=== PATIENT | female | born 1955 | race Caucasian/White ===

== ENCOUNTER 2017-12-04 13:32 | Inpatient (IN) | payer BC ==
[~2017-12-04] VITALS: Ht 271.8 cm; Wt 68.9 kg
[2017-12-04] MEDS ORDERED: ASPIRIN 81 MG CHEW TAB PO ONE ×2 (13:45→15:30)
[2017-12-04] MEDS ORDERED: MORPHINE SULFATE 2 MG/ML SYR IV STA (13:46)
[2017-12-04] MEDS ORDERED: ONDANSETRON HCL INJ 2 MG/ML VIAL IV STA (13:46)
[2017-12-04 13:53] LABS: BASOPHILS % 0.5 % (0.0-1.0); EOSINOPHILS % 0.4 % (0.0-6.0); HEMATOCRIT 39.3 % (34.2-44.1); HEMOGLOBIN 13.5 g/dL (12.0-16.0); LYMPHOCYTES # (AUTO) 1.8 (1.0-3.2); LYMPHOCYTES % 22.9 % (18.0-39.1); MEAN CORPUSCULAR HEMOGLOBIN 30.8 pg (28-32); MEAN CORPUSCULAR HGB CONC 34.4 g/dL (31-35); MEAN CORPUSCULAR VOLUME 89.5 fL (81-99); MONOCYTES # (AUTO) 0.5 (0.2-0.8); MONOCYTES % 6.3 % (4.4-11.3); NEUTROPHILS # (AUTO) 5.3 (2.1-6.9); NEUTROPHILS % 69.5 % (38.7-80.0); PLATELET COUNT 254 x10e3/uL (140-360); RED BLOOD COUNT 4.39 x10e6/uL (3.6-5.1); RED CELL DISTRIBUTION WIDTH 13.2 % (11.7-14.4)
[2017-12-04] MEDS ORDERED: NITROGLYCERIN 0.4 MG SUBL SL PRN ×2 (14:00→15:30)
[2017-12-04 14:06] LABS: INR 1.1; PROTHROMBIN TIME 13.4 seconds (11.9-14.5)
[2017-12-04 14:07] LABS: PARTIAL THROMBOPLASTIN TIME 27.7 seconds (23.8-35.5)
[2017-12-04] MEDS ORDERED: LORAZEPAM INJ 2 MG/ML VIAL IV ONE ×2 (14:15→15:30)
[2017-12-04 14:18] LABS: ALANINE AMINOTRANSFERASE 20 IU/L (0-55); ALBUMIN 4.1 g/dL (3.5-5.0); ALBUMIN/GLOBULIN RATIO 1.1 (0.8-2.0); ALKALINE PHOSPHATASE 84 IU/L (40-150); ANION GAP 23.1 mmol/L (8-16); BLOOD UREA NITROGEN 37 mg/dL (7-26); BUN/CREATININE RATIO 16 (6-25); CARBON DIOXIDE 15 mmol/L (22-29); CHLORIDE 100 mmol/L (98-107); CREATINE KINASE 82 IU/L (29-168); CREATININE, SERUM 2.34 mg/dL (0.57-1.11); EST GLOMERULAR FILTRATION RATE 21 ML/MIN (60-); GLUCOSE 140 mg/dL (74-118); MAGNESIUM 1.8 MG/DL (1.3-2.1); POTASSIUM 3.1 mmol/L (3.5-5.1); SODIUM 135 mmol/L (136-145)
--- NOTE | 2017-12-04 14:27 | Diagnostic Imaging Report ---
PROCEDURE: A single AP view of the chest. COMPARISON: None. INDICATIONS: CHEST PAIN, SHORTNESS OF BREATH, NAUSEA FINDINGS: Lines/tubes: None. Lungs: The lungs are well inflated. No definite focal consolidation. Bilateral breast implants limit evaluation of the mid to lower lung linares. Pleura: There is no pleural effusion or pneumothorax. Heart and mediastinum: The heart and the mediastinum are unremarkable. Bones: No acute bony abnormality. Mild scoliosis of the spine. IMPRESSION: 1. No acute cardiopulmonary disease. Dictated by: Micheal Finch M.D. on 12/04/2017 at 14:27 Electronically approved by: Micheal Finch M.D. on 12/04/2017 at 14:27
[2017-12-04] MEDS ORDERED: CEFTRIAXONE SOD 1 GM VIAL IV SCH (14:30)
[2017-12-04] MEDS ORDERED: AZITHROMYCIN 500MG/NS 250 ML 250 ML IV SCH (14:30)
[2017-12-04 14:38] LABS: THYROID STIMULATING HORMONE 3.396 uIU/mL (0.350-4.940)
[2017-12-04] MEDS ORDERED: LORAZEPAM INJ 2 MG/ML VIAL IV PRN (15:30)
[2017-12-04] MEDS ORDERED: MORPHINE SULFATE 2 MG/ML SYR IV PRN (15:30)
[2017-12-04] MEDS ORDERED: SODIUM CHLORIDE 0.9% 1000ML 1,000 ML IV SCH (15:30)
[2017-12-04] MEDS ORDERED: SODIUM CHLORIDE FLUSH 10 ML SYR INJ PRN (15:30)
[2017-12-04] MEDS ORDERED: POTASSIUM CHLORIDE 20 MEQ TAB CR PO STA (15:42)
[2017-12-04 16:34] LABS: ABG HCO3 20 mmol/L (23-28); ABG PCO2 26 mmHg (41-51); ABG PO2 126 mmHg (80-105)
[2017-12-04] MEDS: FAMOTIDINE 20 MG TAB PO SCH (16:41)
[2017-12-04 17:14] LABS: BILIRUBIN,URINE NEGATIVE (NEGATIVE); CLARITY,URINE SL CLOUDY (CLEAR); COLOR,URINE YELLOW (YELLOW); KETONES,URINE 1+ (NEGATIVE); LEUKOCYTE ESTERASE ,URINE 1+ (NEGATIVE); NITRITE,URINE NEGATIVE (NEGATIVE); PROTEIN,URINE DIPSTICK NEGATIVE (NEGATIVE); URINE UROBILINOGEN 0.2 mg/dL (0.2 - 1)
[2017-12-04 17:30] LABS: BACTERIA,URINE FEW /HPF; EPITHELIAL CELLS,URINE MODERATE /LPF; RENAL EPITHELIAL CELLS,URINE RARE
[2017-12-04 18:18] LABS: ABG PCO2 13 mmHg (41-51); ABG PH 7.67 (7.31-7.41); ABG PO2 129 mmHg (80-105)
[2017-12-04 18:19] LABS: ABG HCO3 16 mmol/L (23-28)
[2017-12-04] MEDS ORDERED: AMLODIPINE BESYL5 MG PO (18:30)
[2017-12-04] MEDS ORDERED: KETOPROFEN50 MG PO (18:30)
[2017-12-04] MEDS ORDERED: ASPIR 8181 MG PO (18:30)
[2017-12-04] MEDS ORDERED: TRIAMTERENE-HC1 EAC2 PO (18:31)
[2017-12-04] MEDS ORDERED: OMEPRAZOLE40 MG PO (18:39)
--- OUTSIDE RECORDS SUMMARY | 2017-12-04 18:47 | XMS REPORT ---
Author Author [facility] Address Unknown Phone Unavailable Care Team Providers Care Dump Motorman Name Role Phone IVAN MYERS Unavailable Unavailable Problems This patient has no known problems. Allergies, Adverse Reactions, Alerts This patient has no known allergies or adverse reactions. Medications This patient has no known medications. Results Test Description Test Time Test Comments Text Results Atomic Results Result Comments CHEST SINGLE (PORTABLE) [place] [address] Patient Name: ORLANDO JOSHI MR #: [id number] : 1955 Age/Sex: 62/F Req #: [id number] Adm Physician: Ordered by: TREV REAGAN [employer] SCIENCE TE[employer]ER Report #: [id number] Location: ER Room/Bed: Procedure: [id number] DX/CHEST SINGLE (PORTABLE) Exam Date: 12/04/17 Exam Time: 1402 REPORT STATUS: Signed PROCEDURE: A single AP view of the chest. COMPARISON: None. INDICATIONS: CHEST PAIN, SHORTNESS OF BREATH, NAUSEA FINDINGS: Lines/tubes: None. Lungs: The lungs are well inflated. No definite focal consolidation. Bilateral breast implants limit evaluation of the mid to lower lung linares. Pleura: There is no pleural effusion or pneumothorax. Heart and mediastinum: The heart and the mediastinum are unremarkable. Bones: No acute bony abnormality. Mild scoliosis of the spine. IMPRESSION: 1. No acute cardiopulmonary disease. Dictated by: Micheal Abdi M.D. on 12/04/2017 at 14:27 Electronically approved by: Micheal Abdi M.D. on 12/04/2017 at 14:27 Dictated By: MICHEAL ABDI MD 26 Transcribed By: ROSIO on 12/04/171426 COPY TO: TREV REAGAN NP
--- NOTE | 2017-12-04 20:42 | Diagnostic Imaging Report ---
EXAM: VENTILATION PERFUSION LUNG SCAN INDICATION: 62 F with SOB COMPARISON: None DISCUSSION: Xenon-133 gas 15 mCi was administered via inhalation. Dynamic images of the lungs in the posterior projection were obtained through single breath and washout phases. Distribution of tracer activity is mildly irregular throughout the lungs. Washout is diffusely delayed without evidence of air trapping. Tracer is seen in the liver consistent with fatty liver. Perfusion images of the lungs in multiple projections were obtained following intravenous administration of 6 mCi of Tc-99m MAA. Distribution of tracer is mildly irregular throughout the lungs. There are no segmental perfusion defects of any size. The contours of the lungs are well demarcated. The cardiac silhouette is unremarkable. IMPRESSION: 1. Scan findings represent a VERY LOW probability for acute pulmonary embolic disease based on the PIOPED II criteria. 2. Scan findings are compatible with diffuse parenchymal and/or obstructive lung disease. Signed by: Dr. Adriana Cordero M.D. on 12/04/2017 8:38 PM
[2017-12-04 20:45] VITALS: BP 123/58
[2017-12-04] MEDS ORDERED: SIMVASTATIN 20 MG TAB PO SCH (21:00)
[2017-12-04 21:31] VITALS: BP 140/89
[2017-12-04 21:43] VITALS: BP 151/89
[2017-12-05] VITALS: BP 113/56
[2017-12-05] MEDS: FAMOTIDINE 20 MG TAB PO SCH (03:30)
[2017-12-05 04:00] VITALS: BP 120/59
[2017-12-05 06:19] LABS: BASOPHILS # (AUTO) 0.1 (0.0-0.1); BASOPHILS % 1.2 % (0.0-1.0); EOSINOPHILS # (AUTO) 0.1 (0.0-0.4); EOSINOPHILS % 2.6 % (0.0-6.0); HEMATOCRIT 37.6 % (34.2-44.1); HEMOGLOBIN 12.3 g/dL (12.0-16.0); LYMPHOCYTES # (AUTO) 1.7 (1.0-3.2); LYMPHOCYTES % 39.3 % (18.0-39.1); MEAN CORPUSCULAR HEMOGLOBIN 30.4 pg (28-32); MEAN CORPUSCULAR HGB CONC 32.7 g/dL (31-35); MONOCYTES # (AUTO) 0.4 (0.2-0.8); MONOCYTES % 10.1 % (4.4-11.3); NEUTROPHILS % 46.6 % (38.7-80.0); PLATELET COUNT 200 x10e3/uL (140-360); RED BLOOD COUNT 4.05 x10e6/uL (3.6-5.1); RED CELL DISTRIBUTION WIDTH 13.7 % (11.7-14.4)
[2017-12-05 06:30] LABS: MEAN CORPUSCULAR VOLUME 92.8 fL (81-99)
[2017-12-05 06:54] LABS: ALBUMIN 3.5 g/dL (3.5-5.0); ALBUMIN/GLOBULIN RATIO 1.1 (0.8-2.0); ANION GAP 12.7 mmol/L (8-16); CALCIUM 9.2 mg/dL (8.4-10.2); CHOL/HDL RATIO 3.4 (3.0-3.6); CREATININE, SERUM 1.85 mg/dL (0.57-1.11); PHOSPHORUS 3.6 MG/DL (2.3-4.7); POTASSIUM 3.7 mmol/L (3.5-5.1)
[2017-12-05 07:24] VITALS: BP 120/59
[2017-12-05 08:36] LABS: CREATINE KINASE 103 IU/L (29-168)
[2017-12-05] MEDS ORDERED: ASPIRIN 325 MG TAB EC PO SCH (09:00)
[2017-12-05] MEDS ORDERED: AMLODIPINE BESYLATE 5 MG TAB PO SCH ×2 (11:30→21:00)
[2017-12-05] MEDS ORDERED: ASPIRIN 81 MG CHEW TAB PO SCH (11:30)
[2017-12-05] MEDS ORDERED: PANTOPRAZOLE SOD 40 MG TABEC PO SCH ×2 (11:30→17:00)
[2017-12-05] MEDS ORDERED: PROTONIX40 MG/ML PO (11:41)
[2017-12-05] MEDS ORDERED: SIMVASTATIN20 MG PO (11:41)
[2017-12-05] MEDS ORDERED: LORAZEPAM0.5 MG PO (11:41)
[2017-12-05] MEDS ORDERED: TYLENOL WITH C1 EACH PO (11:41)
[2017-12-05] MEDS ORDERED: ASPIRIN ENTERI325 MG PO (11:41)
[2017-12-05 11:42] VITALS: BP 120/59
[2017-12-05] MEDS ORDERED: ENOXAPARIN SOD INJ 40 MG/0.4 ML SYR SC STA (11:45)
[2017-12-05] MEDS ORDERED: ENOXAPARIN SOD INJ 40 MG/0.4 ML SYR SC SCH (11:45)
[2017-12-05] MEDS ORDERED: SODIUM CHLORIDE 0.9% 1000ML 1,000 ML IV ONE (12:00)
[2017-12-05 15:26] VITALS: BP 136/74
--- NOTE | 2017-12-05 17:35 | Consultation ---
DATE OF CONSULTATION: December 05, 2017 CARDIOLOGY CONSULTATION REQUESTING PHYSICIAN: Dr. Rudy Williamson. REASON FOR CONSULTATION: Chest pain. HISTORY OF PRESENT ILLNESS: This is a 62-year-old woman with history of hypertension who presents with complaints of chest heaviness. She reports she has been having these symptoms off and on for the last few months. The chest heaviness occurs both at rest and with activity. It is associated with nausea and shortness of breath. The pain is described as 8 to 9/10 in severity and she reports it improves with burping. REVIEW OF SYSTEMS: Negative except as per HPI. PAST MEDICAL HISTORY: Hypertension. PAST SURGICAL HISTORY 1. section x2. 2. Hysterectomy. ALLERGIES: PLEASE SEE EMR. MEDICATIONS: Please see medication list. SOCIAL HISTORY: No tobacco, alcohol, or illicit drugs. FAMILY HISTORY: Pertinent for father with a CABG and stents. PHYSICAL EXAMINATION VITAL SIGNS: Temperature 97 degrees, pulse 69, respiratory rate 16, blood pressure 120/59, and oxygen saturation 98% on room air. GENERAL: A well-developed and well-nourished man, in no acute distress. HEENT: Normocephalic, atraumatic. Pupils equal. No scleral icterus. NECK: Supple. No thyromegaly or cervical lymphadenopathy. No carotid bruits. LUNGS: Clear to auscultation bilaterally. No wheezes or crackles. CARDIOVASCULAR: Normal rate. Regular rhythm. No murmur. Normal S1 and S2. ABDOMEN: Soft and nontender. EXTREMITIES: No edema. NEURO: Nonfocal exam. LABS: WBC 4.29, hemoglobin 12.3, hematocrit 37.6, and platelets 200. Sodium is 137, potassium 3.7, chloride 105, CO2 of 23, BUN 32, and creatinine 1.85. Troponin less than 0.05. Cholesterol 221, LDL 141, HDL 65, and triglycerides 74. IMAGING: EKG; sinus tachycardia with possible left atrial enlargement, an incomplete right bundle branch block, and nonspecific ST abnormality. Chest x-ray; no acute cardiopulmonary disease. V/Q scan represents very low probability for acute pulmonary embolic disease based on the PIOPED II criteria. Scan findings are compatible with diffuse parenchymal and/or obstructive lung disease. IMPRESSION 1. Chest pain. 2. Hypertension. RECOMMENDATIONS: Patient ruled out for myocardial infarction with serial cardiac biomarkers. The patient had stress test and echocardiogram done at the office. We will review the results. If patient had no evidence of ischemia, no further cardiac evaluation is indicated at this time. Consider GI or pulmonary evaluation. Job#: [id number] VAS
[2017-12-05 18:23] VITALS: BP 115/66
--- NOTE | 2017-12-05 19:09 | Discharge Summary ---
ADMISSION DIAGNOSES 1. Chest heaviness. 2. Hypertension. 3. Gastroesophageal reflux disease. 4. Acute kidney injury. 5. Hyperlipidemia. DISCHARGE DIAGNOSES 1. Chest heaviness. 2. Hypertension. 3. Gastroesophageal reflux disease. 4. Acute kidney injury. 5. Hyperlipidemia. 6. Ruled out myocardial infarction. HISTORY: Patient has a history of hypertension, GERD and arthritis. HOSPITAL COURSE: A 62-year-old female presents with chest heaviness over the last few months. Heaviness improves with omeprazole. Patient wanted to rule out cardiac issues due to a family history; so, she went to Dr. Frey to have an echo, carotid Doppler and stress test. At time of admission, results had not yet been given. Patient complains of associated dizziness, shortness of breath, and she says she made herself throw up in hopes to find relief. She denies fever. On admission patient was started on 325 aspirin and statin. V/Q scan was negative. Troponins were negative. Dr. Frey was consulted. For hypertension her Norvasc was continued, but her triamterene and hydrochlorothiazide were held. The patient started on Protonix b.i.d. for the GERD. Patient's creatinine was 1.85 with a BUN of 32, trending down after fluids. Per Cardiology, patient is okay to discharge home as the stress test was negative. Patient already had an outpatient appointment with Dr. Cristina for an EGD and colonoscopy; so, she will resume that visit. She is no longer having the chest heaviness. She says that when she takes omeprazole it is better anyway. She will follow up with primary care in 1 to 2 weeks. Vital signs were stable. Patient remained afebrile. Dictated by: Moraima Lambert NP EARLINE HOBBS MD Job#: [id number] EV
[2017-12-06] MEDS ORDERED: ENOXAPARIN SOD INJ 40 MG/0.4 ML SYR SC SCH (09:00)
[2017-12-09] MEDS ORDERED: TRIAMTERENE-HC1 EAC2 PO (09:22)
[2017-12-09] MEDS ORDERED: ASPIRIN81 MG PO (09:22)
[2017-12-09] MEDS ORDERED: OMEPRAZOLE40 MG PO (09:22)
== END 2017-12-05 19:01 | disposition home or self-care (01) | DRG 684 ==
LOC: ER 13:32 → EDBD 13:32 → ERHOLD 18:44 → MED/SURG2 20:36
PROVIDERS: ADMIT Internal Medicine; ATTEND Internal Medicine
DX: N17.9 Acute kidney failure, unspecified (principal); I10 Essential (primary) hypertension; K21.9 Gastro-esophageal reflux disease without esophagitis; R07.9 Chest pain, unspecified; E87.6 Hypokalemia
CPT/HCPCS: 36415; 36600; 71045; 78582; 80053; 80061; 81001; 82550; 82553; 82805; 83605; 83735; 83880; 84100; 84443; 84484; 85025; 85379; 85610; 85730; 87086; 93005; 99284; A9540; A9558; J2060; J2270; J2405; J7030

== ENCOUNTER → 2017-12-14 | Day surgery (SDC) | payer BC ==
[~2017-12-14] MED LIST: AMLODIPINE BESYL5 MG PO; ASPIR 8181 MG PO; ASPIRIN ENTERI325 MG PO; ASPIRIN81 MG PO; FENTANYL CITRATE/PF 100MCG/2 ML INJ ONE; KETOPROFEN50 MG PO; LIDOCAINE HCL 2% LOCAL INJ 5 ML SDV VIAL INJ ONE; LORAZEPAM0.5 MG PO; MIDAZOLAM HCL 2 MG/2 ML VIAL ONE; OMEPRAZOLE40 MG PO; PROPOFOL IV EMULSION 10 MG/ML 50 ML VIAL ONE; PROTONIX40 MG/ML PO; SIMVASTATIN20 MG PO; TRIAMTERENE-HC1 EAC2 PO; TYLENOL WITH C1 EACH PO
--- OUTSIDE RECORDS SUMMARY | 2017-12-14 11:59 | XMS REPORT | Continuity of Care Document ---
Author Author [facility] Organization [facility] Address [address] [place] [address] Phone Unavailable Care Team Providers Care Marketing Operations Analyst Name Role Phone EARLINE LOVE DO PCP Insurance Providers Guarantor Tara Joshie Ellis Address [address] [place] [address] Email PTDECLINED [facility] [employer] Policy Number [id number] Subscriber's Name Tonya Joshi Relationship 18 Self / Same As Patient Group Number [id number] Effective Date 01 Advance Directives Directive Response Recorded Date/Time Does the patient have an advance directive? No 12/04/17 9:19pm If yes, is advance directive [facility]? No 12/04/17 9:19pm If not on file with [facility] will patient provide a copy? No 12/04/17 9:19pm Do you have a Directive to Physician? No 12/04/17 4:38pm Do you have a Medical Power of [place] Drawer? No 12/04/17 4:38pm Do you have an out of hospital Do Not Resuscitate Order? No 12/04/17 4:38pm Do you have any special needs we should be aware of? No 12/04/17 4:38pm Do you have a support person here with you today? Yes 12/04/17 4:38pm Did patient receive Notice of Privacy Practices? Yes 12/04/17 4:38pm Did patient receive patient rights and responsibilities? Yes 12/04/17 4:38pm Problems Medical Problem Onset Date Status Chest tightness or pressure Unknown Renal insufficiency Unknown Medications Current Home Medications Medication Dose Units Route Directions Days Qty Instructions Start Date Acetaminophen With Codeine (Tylenol With Codeine #3 Tablet) 1 Each Tablet 300 Mg Oral Every 12 Hours as needed for Pain 30 Tab 12/05/17 Amlodipine Besylate 5 Mg Tablet 2.5 Mg Oral Bedtime 30 Tab Aspirin (Aspirin Enteric Coated) 325 Mg Tabec 325 Mg Oral Every Morning 30 Days 12/05/17 Ketoprofen 50 Mg Capsule 50 Mg Oral Daily THERAPEUTICALLY SUBSTITUTED WITH IBUPROFEN 600MG Lorazepam 0.5 Mg Tablet 0.5 Mg Oral Every 8 Hours as needed for Anxiety 14 Tab 12/05/17 Pantoprazole Sod (Protonix) 40 Mg/Ml Susp 40 Mg Oral Twice A Day 30 Days 12/05/17 Simvastatin 20 Mg Tablet 20 Mg Oral Bedtime 30 Days 12/05/17 Past Home Medications Medication Directions Ordered Status Aspirin (Aspir 81) 81 Mg Tablet.dr, 81 Mg Oral Daily Discontinued Omeprazole 40 Mg Capsule.dr, 40 Mg Oral Daily Discontinued Triamterene/Hydrochlorothiazid (Triamterene-Hctz 37.5-25 Mg Cp) 1 Each Capsule , 1 Tab Oral Daily Discontinued Social History Social History Problem Response Recorded Date/Time Onset Date Status Hx Psychiatric Problems No 12/04/2017 9:19pm Not Applicable Not Applicable Hx Eating Disorder No 12/04/2017 9:19pm Not Applicable Not Applicable Hx Substance Use Disorder No 12/04/2017 9:19pm Not Applicable Not Applicable Hx Depression No 12/04/2017 9:19pm Not Applicable Not Applicable Hx Alcohol Use No 12/04/2017 9:19pm Not Applicable Not Applicable Hx Substance Use Treatment No 12/04/2017 9:19pm Not Applicable Not Applicable Hx Physical Abuse No 12/04/2017 9:19pm Not Applicable Not Applicable Smoking Status Start Date Stop Date Unknown if ever smoked Hospital Discharge Instructions No hospital discharge instruction information available. Plan of Care Discharge Date 12/05/17 7:01pm Disposition HOME, SELF-CARE Instructions/Education Provided Chest Pain - Chest Wall Prescriptions See Medication Section Referrals ANNABELLA QUIGLEY MD (Gastroenterology) Entered Date: 12/05/2017 11:44am Address: [address] [place] [id number] Additional Instructions/Education follow up with Dr Frey on 12/07/2017 Functional Status Query Response Date Recorded Assistive Devices None December 04, 2017 9:31pm Ambulation Ability Standby Assistance December 04, 2017 9:31pm Toileting Ability Standby Assistance December 04, 2017 9:31pm Allergies, Adverse Reactions, Alerts No known allergies. Immunizations No immunization information available. Vital Signs Acute Vital Signs Vital Response Date/Time Temperature (Fahrenheit) 97.6 degrees F (97.6 - 99.5) 12/05/2017 6:23pm Pulse Pulse Rate (adult) 75 bpm (60 - 90) 12/05/2017 6:23pm Respiratory Rate 20 bpm (12 - 24) 12/05/2017 6:23pm Blood Pressure 115/66 mm Hg 12/05/2017 6:23pm Height 8 ft 11 in 12/04/2017 9:19pm Weight 152 lb 12/04/2017 9:19pm Body Mass Index 9.3 kg/m^2 12/04/2017 9:19pm Results Laboratory Results Test Name Result Units Flags Reference Collection Date/Time Result Date/ Time Comments White Blood Count 4.27 x10e3/uL L 4.8-10.8 12/05/2017 5:55am 12/05/2017 6:30am Red Blood Count 4.05 x10e6/uL 3.6-5.1 12/05/2017 5:55am 12/05/2017 6: 30am Hemoglobin 12.3 g/dL 12.0-16.0 12/05/2017 5:55am 12/05/2017 6:30am Hematocrit 37.6 % 34.2-44.1 12/05/2017 5:55am 12/05/2017 6:30am Mean Corpuscular Volume 92.8 fL # 81-99 12/05/2017 5:55am 12/05/2017 6: 30am VERIFIED PREVIOUS RESULTS Mean Corpuscular Hemoglobin 30.4 pg 28-32 12/05/2017 5:55am 12/05/2017 6:30am Mean Corpuscular Hemoglobin Concent 32.7 g/dL 31-35 12/05/2017 5:55am 12/05/2017 6:30am Red Cell Distribution Width 13.7 % 11.7-14.4 12/05/2017 5:55am 2017 6:30am Platelet Count 200 x10e3/uL 140-360 12/05/2017 5:55am 12/05/2017 6: 30am Neutrophils (%) (Auto) 46.6 % 38.7-80.0 12/05/2017 5:55am 12/05/2017 6: 30am Lymphocytes (%) (Auto) 39.3 % H 18.0-39.1 12/05/2017 5:55am 12/05/2017 6 :30am Monocytes (%) (Auto) 10.1 % 4.4-11.3 12/05/2017 5:55am 12/05/2017 6: 30am Eosinophils (%) (Auto) 2.6 % 0.0-6.0 12/05/2017 5:55am 12/05/2017 6: 30am Basophils (%) (Auto) 1.2 % H 0.0-1.0 12/05/2017 5:55am 12/05/2017 6: 30am IM GRANULOCYTES % 0.2 % 0.0-1.0 12/05/2017 5:55am 12/05/2017 6:30am Neutrophils # (Auto) 2.0 L 2.1-6.9 12/05/2017 5:55am 12/05/2017 6: 30am Lymphocytes # (Auto) 1.7 1.0-3.2 12/05/2017 5:55am 12/05/2017 6:30am Monocytes # (Auto) 0.4 0.2-0.8 12/05/2017 5:55am 12/05/2017 6:30am Eosinophils # (Auto) 0.1 0.0-0.4 12/05/2017 5:55am 12/05/2017 6:30am Basophils # (Auto) 0.1 0.0-0.1 12/05/2017 5:55am 12/05/2017 6:30am Absolute Immature Granulocyte (auto 0.01 x10e3/uL 0-0.1 12/05/2017 5: 55am 12/05/2017 6:30am Prothrombin Time 13.4 seconds 11.9-14.5 12/04/2017 1:33pm 12/04/2017 2: 07pm Prothromb Time International Ratio 1.10 12/04/2017 1:33pm 2017 2:07pm Oral Anticoagulant Therapy INR Values: 1. Low Intensity Therapy 1.5 - 2.0 2. Moderate Intensity Therapy 2.0 - 3.0 3. High Intensity Therapy(1) 2.5 - 3.5 4. High Intensity Therapy(2) 3.0 - 4.0 5. Panic Value INR > 5.0 Activated Partial Thromboplast Time 27.7 seconds 23.8-35.5 12/04/2017 1: 33pm 12/04/2017 2:07pm D-Dimer Quantitative (PE/DVT) 0.61 ug/mLFEU H 0.00-0.45 12/04/2017 1: 33pm 12/04/2017 2:25pm As with all in vitro diagnostic tests, the test results should be interpreted by the physician in conjunction with clinical findings and other test results. Test results are reported in NEW D-dimer units(ug/mLFEU). Urine Color YELLOW YELLOW 12/04/2017 3:15pm 12/04/2017 5:14pm Urine Clarity SL CLOUDY CLEAR 12/04/2017 3:15pm 12/04/2017 5:14pm Urine Specific [place] 1.015 1.010-1.025 12/04/2017 3:2017 5:14pm Urine pH 7 5 - 7 12/04/2017 3:pm 12/04/2017 5:14pm Urine Leukocyte Esterase 1+ H NEGATIVE 12/04/2017 3:15pm 12/04/2017 5: 14pm Urine Nitrite NEGATIVE NEGATIVE 12/04/2017 3:15pm 12/04/2017 5:14pm Urine Protein NEGATIVE NEGATIVE 12/04/2017 3:15pm 12/04/2017 5:14pm Urine Glucose (UA) NEGATIVE NEGATIVE 12/04/2017 3:15pm 12/04/2017 5: 14pm Urine Ketones 1+ H NEGATIVE 12/04/2017 3:15pm 12/04/2017 5:14pm Urine Urobilinogen 0.2 mg/dL 0.2 - 1 12/04/2017 3:15pm 12/04/2017 5: 14pm Urine Bilirubin NEGATIVE NEGATIVE 12/04/2017 3:15pm 12/04/2017 5: 14pm Urine Blood TRACE H NEGATIVE 12/04/2017 3:15pm 12/04/2017 5:14pm Urine WBC 6-10 /HPF H 0-5 12/04/2017 3:15pm 12/04/2017 5:30pm Urine RBC NONE /HPF 0-5 12/04/2017 3:15pm 12/04/2017 5:30pm Urine Bacteria FEW /HPF NONE 12/04/2017 3:15pm 12/04/2017 5:30pm Urine Epithelial Cells MODERATE /LPF NONE 12/04/2017 3:15pm 12/04/2017 5:30pm Urine Renal Epithelial Cells RARE H NONE 12/04/2017 3:15pm 12/04/2017 5:30pm Sodium Level 137 mmol/L 136-145 12/05/2017 5:55am 12/05/2017 7:08am Potassium Level 3.7 mmol/L 3.5-5.1 12/05/2017 5:55am 12/05/2017 7:08am Chloride Level 105 mmol/L 98-107 12/05/2017 5:55am 12/05/2017 7:08am Carbon Dioxide Level 23 mmol/L 22-29 12/05/2017 5:55am 12/05/2017 7: 08am Anion Gap 12.7 mmol/L 8-16 12/05/2017 5:55am 12/05/2017 7:08am Blood Urea Nitrogen 32 mg/dL H 7-26 12/05/2017 5:55am 12/05/2017 7:08am Creatinine 1.85 mg/dL H 0.57-1.11 12/05/2017 5:55am 12/05/2017 7:08am BUN/Creatinine Ratio 17 6-25 12/05/2017 5:55am 12/05/2017 7:08am Estimat Glomerular Filtration Rate 28 ML/MIN L 60- 12/05/2017 5:55am 7:08am Ranges were taken from the National Kidney Disease Education Program and the National Kidney Foundation literature. Reference ranges: 60 or greater: Normal 16-59 (for 3 consecutive months): Chronic kidney disease 15 or less: Kidney failure Glucose Level 91 mg/dL 74-118 12/05/2017 5:55am 12/05/2017 7:08am Calcium Level 9.2 mg/dL 8.4-10.2 12/05/2017 5:5512/05/2017 7:08am Lactic Acid Level 7.1 MG/DL 4.5-19.8 12/04/2017 9:37pm 12/04/2017 10: 16pm Phosphorus Level 3.6 MG/DL 2.3-4.7 12/05/2017 5:5512/05/2017 7:08am Magnesium Level 2.0 MG/DL 1.3-2.1 12/05/2017 5:5512/05/2017 7:08am Total Bilirubin 0.6 mg/dL 0.2-1.2 12/05/2017 5:5512/05/2017 7:08am Aspartate Amino Transf (AST/SGOT) 17 IU/L 5-34 12/05/2017 5:552017 7:08am Alanine Aminotransferase (ALT/SGPT) 19 IU/L 0-55 12/05/2017 5:55 7:08am Total Protein 6.8 g/dL 6.5-8.1 12/05/2017 5:5512/05/2017 7:08am Albumin 3.5 g/dL 3.5-5.0 12/05/2017 5:12/05/2017 7:08am Globulin 3.3 g/dL 2.3-3.5 12/05/2017 5:5512/05/2017 7:08am Albumin/Globulin Ratio 1.1 0.8-2.0 12/05/2017 5:5512/05/2017 7: 08am Alkaline Phosphatase 72 IU/L 40-150 12/05/2017 5:5512/05/2017 7: 08am Triglycerides Level 74 MG/DL 0-149 12/05/2017 5:5512/05/2017 7:08am Cholesterol Level 221 MD/DL H 0-199 12/05/2017 5:5512/05/2017 7:08am Less than 200 mg/dL Low Risk 201 - 239 mg/dL Borderline Risk 240 mg/dl and greater High Risk LDL Cholesterol 141 MG/DL H 60-130 12/05/2017 5:55am 12/05/2017 7:08am HDL Cholesterol 65 MG/DL H 40-60 12/05/2017 5:55am 12/05/2017 7:08am Cholesterol/HDL Ratio 3.4 3.0-3.6 12/05/2017 5:55am 12/05/2017 7: 08am B-Type Natriuretic Peptide 32.1 pg/mL 0-100 12/04/2017 1:33pm 2017 2:22pm Creatine Kinase 103 IU/L 29-168 12/05/2017 5:55am 12/05/2017 8:38am Creatine Kinase MB 1.40 ng/mL 0-4.3 12/05/2017 5:55am 12/05/2017 6: 46am Troponin I < 0.05 ng/mL 0.0-0.40 12/05/2017 5:55am 12/05/2017 6:46am Thyroid Stimulating Hormone (TSH) 3.396 uIU/mL 0.350-4.940 12/04/2017 1: 33pm 12/04/2017 2:39pm Arterial Blood pH 7.67 H 7.31-7.41 12/04/2017 2:35pm 12/04/2017 6: 19pm Arterial Blood Partial Pressure CO2 13 mmHg L 41-51 12/04/2017 2:35pm 6:19pm Arterial Blood Partial Pressure O2 129 mmHg H 80-105 12/04/2017 2:35pm 12/04/2017 6:19pm Arterial Blood HCO3 16 mmol/L L 23-28 12/04/2017 2:35pm 12/04/2017 6: 19pm Arterial Blood Base Excess -5.0 mmol/L L -2 - 3 12/04/2017 2:35pm 2017 6:19pm Arterial Blood Oxygen Saturation 100.0 % H 95-98 12/04/2017 2:35pm 12/04 6:19pm FiO2 28 % 12/04/2017 2:35pm 12/04/2017 6:19pm NC 2 L/M right radial Procedures No procedure information available. Encounters Encounter Location Arrival/Admit Date Discharge/Depart Date Attending Provider [facility] 12/04/17 6:44pm 12/05/17 7:01pm EARLINE HOBBS MD
--- NOTE | 2017-12-14 15:42 | Operative Report ---
DATE OF PROCEDURE: December 14, 2017 REFERRING PHYSICIAN: Dr. Dean Love PROCEDURES PERFORMED 1. Esophagogastroduodenoscopy with biopsies and esophageal dilatation. 2. Colonoscopy with polypectomy. INDICATIONS FOR EGD: Acid reflux and dysphagia. INDICATIONS FOR COLONOSCOPY: Colorectal cancer screening. MEDICATION: Patient was done under MAC. Please see anesthesiologist's note. PROCEDURE: With the patient in the left lateral decubitus position, the flexible fiberoptic Olympus gastroscope was introduced into the esophagus under direct visualization without any difficulty. There was some patchy erythema noted in the distal esophagus. There was a focal raised area noted at the GE junction that was biopsied. A Schatzki's ring was noted, and it was traversed with ease with the scope, which was advanced into the stomach traversing a moderate size hiatal hernia. Mucosa overlying the antrum and the body revealed some patchy erythema and mild to moderate edema, and biopsies were obtained sent to stain for H. pylori. The pylorus was of normal contour and shape. It was intubated with ease. The scope was advanced all the way to the 2nd portion of the duodenum. The scope was then withdrawn slowly, and mucosa overlying the proximal 2nd portion and the duodenal bulb appeared to be within normal limits. The scope was then withdrawn back into the stomach and retroflexed. The mucosa overlying the fundus and the cardia appeared to be within normal limits. The scope was then straightened out. The stomach was decompressed. The scope was subsequently withdrawn. Patient tolerated the procedure well. IMPRESSION 1. Distal esophagitis, mild. 2. Focal raised area at gastroesophageal junction, biopsied. 3. Schatzki's ring dilated to size 52-[place]. 4. Moderate size hiatal hernia. 5. Gastritis, biopsied. Biopsies sent to stain for Helicobacter pylori. PLAN: Follow up histology. Initiate Protonix 40 mg 1 p.o. q.a.m. a.c. Patient was then turned around. After adequate lubrication of the anal canal, a flexible fiberoptic Olympus colonoscope was inserted into the rectum with ease and was advanced with some difficulty all the way to the cecum. The distal sigmoid colon was sharply angulated due to significant adhesions and was negotiated with some difficulty. The scope was then withdrawn slowly. Mucosa overlying the cecum, ascending and transverse grossly appeared to be within normal limits. One minute polyp was hot biopsied from the descending colon. The sigmoid and the rectum grossly appeared to be within normal limits. The scope was then retroflexed into the distal rectum, and the area around the dentate line appeared to be within normal limits. The scope was then straightened out. The rectosigmoid area, as well as the distal rectal area were decompressed. The scope was subsequently withdrawn. Patient tolerated the procedure well. IMPRESSION: Descending colon polyp, hot biopsied. PLAN: Follow up histology. Initiate high-fiber and low-fat diet. Initiate high-fiber supplement. Patient will need a followup colonoscopy in 3-5 years. Job#: [id number] [place] cc:EARLINE LOVE DO
== END | disposition home or self-care (01) ==
LOC: OR 11:57
PROVIDERS: ATTEND Internal Medicine Gastroenterology
DX: Z12.11 Encounter for screening for malignant neoplasm of colon (principal); D12.4 Benign neoplasm of descending colon; K29.70 Gastritis, unspecified, without bleeding; K22.2 Esophageal obstruction; K20.9 Esophagitis, unspecified; K21.9 Gastro-esophageal reflux disease without esophagitis; K44.9 Diaphragmatic hernia without obstruction or gangrene; K66.0 Peritoneal adhesions (postprocedural) (postinfection); I10 Essential (primary) hypertension; M19.90 Unspecified osteoarthritis, unspecified site
CPT/HCPCS: 43239; 43450; 45384; J2001; J2250; 45378

== ENCOUNTER → 2020-12-31 | Outpatient (CLI) | payer MEDICARE ==
[~2020-12-31] MED LIST changes: -FENTANYL CITRATE/PF 100MCG/2 ML INJ ONE; +FUROSEMIDE INJ 10 MG/ML 4 ML VIAL ONE; -LIDOCAINE HCL 2% LOCAL INJ 5 ML SDV VIAL INJ ONE; -MIDAZOLAM HCL 2 MG/2 ML VIAL ONE; -PROPOFOL IV EMULSION 10 MG/ML 50 ML VIAL ONE
== END ==
LOC: NM 10:13
PROVIDERS: ATTEND Urology
DX: N13.30 Unspecified hydronephrosis (principal)
CPT/HCPCS: 78708; A9562; J1940